=== PATIENT | male | born 1995 | race Caucasian/White ===

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

== ENCOUNTER 2017-03-19 20:20 | Emergency (ER) | payer BC ==
[2017-03-19] MEDS ORDERED: Ibuprofen TAB* 600 MG PO ONE (20:29)
[2017-03-19 20:31] VITALS: BP 102/72
--- NOTE | 2017-03-19 20:37 | UC ---
Hand/Wrist HPI - HPI Summary HPI Summary: Was playing on [employer] and landed funny on R hand, twisted fingers, and heard a snap. Not currently working or going to school. No prior injury or surgery there. - History Of Current Complaint Stated Complaint: HAND INJURY Time Seen by Provider: 03/19/17 20:29 Hx Obtained From: Patient ?: No Onset/Duration: Sudden Onset Severity Initially: Moderate Severity Currently: Moderate Character Of Pain: Dull, Aching Aggravating Factor(s): Movement Associated Signs And Symptoms: Positive: Swelling Related History: Dominant Hand Right - Allergies/Home Medications Allergies/Adverse Reactions: Allergies Allergy/AdvReac Type Severity Reaction Status Date / Time Sulfa Drugs Allergy Intermediate Rash Verified 12/30/16 14:01 PMH/Surg Hx/FS Hx/Imm Hx Previously Healthy: Yes Other History Of: Negative For: HIV, Hepatitis B, Hepatitis C, Anticoagulant Therapy - Surgical History Surgical History: Yes Surgery Procedure, Year, and Place: Tonsillectomy adenoidectomy at age 7, TOE SURGERY - Family History Known Family History: Positive: None Negative: Cardiac Disease, Hypertension, Diabetes, Blood Disorder - Social History Alcohol Use: None Substance Use Type: None Smoking Status (MU): Never Smoked Tobacco Have You Smoked in the Last Year: No - Immunization History Most Recent Influenza Vaccination: 05/11 Most Recent Tetanus Shot: UTD Vaccination Up to Date: Yes Review of Systems Constitutional: Negative Skin: Negative Eyes: Negative ENT: Negative Respiratory: Negative Cardiovascular: Negative Gastrointestinal: Negative Genitourinary: Negative Motor: Negative Neurovascular: Negative Musculoskeletal: Arthralgia, Other: - R hand Neurological: Negative Psychological: Negative All Other Systems Reviewed And Are Negative: Yes Physical Exam Triage Information Reviewed: Yes Appearance: Well-Appearing, No Pain Distress, Well-Nourished Vital Signs Reviewed: Yes Eye Exam: Normal, Other - PERRL Eyes: Positive: Conjunctiva Clear ENT Exam: Normal ENT: Positive: Normal ENT inspection, Hearing grossly normal, Pharynx normal, TMs normal Neck exam: Normal Neck: Positive: Supple, Nontender Respiratory Exam: Normal Respiratory: Positive: Chest non-tender, Lungs clear, Normal breath sounds, No respiratory distress, No accessory muscle use Cardiovascular Exam: Normal Cardiovascular: Positive: RRR, No Murmur Musculoskeletal Exam: Other - bony tenderness over R 3rd metacarpal Musculoskeletal: Positive: Strength Limited @ - R him manager, ROM Limited @ - R hand Neurological Exam: Normal Neurological: Positive: Alert Psychological Exam: Normal Skin Exam: Normal Procedures - Splinting Location: R hand Hand-Made Type: orthoglass Splint: R 3rd metacarpal Pre-Proc Neuro Vasc Exam: normal Post-Proc Neuro Vasc Exam: normal Diagnostics - Radiology No standard instances Xray Interpretation: Positive (See Comments) - R hand x-ray: R 3rd metacarpal noted to have oblique, incomplete, minimally displaced shaft fracture Hand/Wrist Course/Dx - Differential Dx/Diagnosis Provider Diagnoses: R 3rd metacarpal shaft fx closed, minimally displaced, oblique, incomplete Discharge - Discharge Plan Condition: Stable Disposition: HOME Patient Education Materials: Hand Fracture (ED) Referrals: Jeffery Stuart MD [Medical Doctor] - 3 Days Additional Instructions: Keep the splint on all the time without getting wet until you see the orthopedist
--- NOTE | 2017-03-19 21:01 | RAD ---
INDICATION: Right hand injury. TECHNIQUE: 4 views of the right hand were obtained. FINDINGS: There is an oblique fracture extending through the distal diaphysis and metaphysis of the third metacarpal. The distal fragment is displaced one cortical diameter lateral relative the proximal fragment. No other fractures are seen. Joint spaces appear maintained. IMPRESSION: OBLIQUE SLIGHTLY DISPLACED FRACTURE OF THE THIRD METACARPAL.
== END 2017-03-19 21:29 | disposition home or self-care (01) ==
LOC: UCEAST 20:20
DX: S62.392A Other fracture of third metacarpal bone, right hand, initial encounter for closed fracture (principal); X58.XXXA Exposure to other specified factors, initial encounter; Y93.44 Activity, trampolining; Y92.9 Unspecified place or not applicable; Z88.2 Allergy status to sulfonamides
CPT/HCPCS: 99211; A9270-GY; G0463

== ENCOUNTER 2017-03-26 09:32 | Day surgery (SDC) | payer BC ==
[~2017-03-26 09:32] MED LIST: Buffered Lidocaine 0.9% SYRIN* 5 ML/SYR SYRINGE INTRADERM ONE
[2017-03-26] MEDS ORDERED: fentaNYL* 50 MCG/ML 2 ML VIAL (100 MCG VIAL) ONE (09:38)
[2017-03-26] MEDS ORDERED: Midazolam* 1 MG/ML 2 ML VIAL (2 MG) ONE (09:38)
[2017-03-26] MEDS ORDERED: ceFAZolin 2 GM PREMIX (*) 50 ML IVPB ONE (09:58)
[2017-03-26] MEDS ORDERED: Propofol* 10 MG/ML 20 ML BTL IV PUSH ONE (10:36)
[2017-03-26] MEDS ORDERED: Dexamethasone IV* 4 MG/ML 1 ML (4 MG) ONE (10:36)
[2017-03-26] MEDS ORDERED: Lidocaine 2% PF * 5 ML VIAL ONE (10:36)
[2017-03-26] MEDS ORDERED: Ondansetron INJ* 2 MG/ML VIAL ONE (10:36)
[2017-03-26] MEDS ORDERED: HYDROmorphone* 1 MG/ML 1 ML SYR IV PRN (10:44)
[2017-03-26] MEDS ORDERED: Acetaminophen TAB* 325 MG PO PRN (10:44)
[2017-03-26] MEDS ORDERED: fentaNYL* 50 MCG/ML 2 ML VIAL (100 MCG VIAL) IV PRN (10:44)
[2017-03-26] MEDS ORDERED: DiMENhydriNATE IV* 50 MG/ML VIAL IV PUSH PRN (10:44)
[2017-03-26] MEDS ORDERED: Bupivacaine 0.25% SDV* 30 ML ONE (11:06)
[2017-03-26] MEDS ORDERED: Sodium Chloride * 10 ML ONE (11:26)
[2017-03-26] MEDS ORDERED: EPHEDrine (Pressors)* 50 MG/ML VIAL ONE (11:26)
[2017-03-26] MEDS ORDERED: Ketorolac INJ* 30 MG/ML 1 ML VIAL ONE (11:53)
[2017-03-26 13:01] VITALS: BP 120/78
--- NOTE | 2017-03-26 23:51 | OP ---
DATE OF OPERATION: 03/26/17 - [facility] DATE OF : [birth year] SURGEON: Jesus Hilton MD CLINICAL RESEARCH ADMINISTRATOR: ROSELINE Cooper. An video production assistant was needed for the entirety of the procedure to assist with position of the arm, retraction and instrumentation. ANESTHESIOLOGIST: Dr. Judy Guadalupe. ANESTHESIA: General. PRE-OP DIAGNOSIS: Right displaced third metacarpal intraarticular fracture. POST-OP DIAGNOSIS: Right displaced third metacarpal intraarticular fracture. OPERATIVE PROCEDURE: Open reduction internal fixation, right third metacarpal intraarticular fracture. INDICATIONS: Cory fractured the third metacarpal bone after an awkward fall in the trampoline. It was rotated and little shortened. I told him that I would get some good x-rays in the operating room and it looks like it was spiraling down into the metacarpal head and I would plan to proceed with open anatomic reduction and internal fixation. If it looked like it was not going into the joint, then I would probably try to see if I could close reduce and pin it. He understood the risks and benefits and the proposed procedure. He elected to proceed. ESTIMATED BLOOD LOSS: 2 mL. COMPLICATIONS: None. FINDINGS: On preoperative fluoroscopy, it looked like it spiraled down right into the volar aspect of the metacarpal head. It also was quite difficult to reduce closed. DESCRIPTION OF PROCEDURE: Cory was seen in the preoperative holding area. The correct side, site, and procedure were identified. We came back to the operating room, anesthesia was induced. The arm was prepped and draped in the usual fashion and the formal time-out was performed. I began by bringing in the mini C-arm and obtaining fluoroscopic imaging, looks like the fracture went obliquely down right to the volar aspect of the metacarpal head. Additionally, it was very difficult to close reduce and I did not really want to line up anatomically. Therefore, I decided to proceed with open reduction, internal fixation. I began by making a longitudinal incision centered over the fracture over the dorsum of the third metacarpal. Dissection was carried down longitudinally once reversing dorsal vein was cauterized. Full-thickness flaps off the peritenon were raised. There was a juncture in between the middle and ring extensor tendon. This was released and the tendons were retracted. The periosteum over the dorsal third metacarpal was incised longitudinally and full- thickness subperiosteal flaps were raised to expose the fracture site. I tried to preserve as much metacarpophalangeal joint capsule as possible. After the fracture was exposed, it was hinged proximally and radially at the fracture site. The fracture was not really mobile at all. I ended up having to put a [place] elevator into the fracture line and opened the fracture site backup. I then used the micro curette and a rongeur as well as irrigation and suction to debride the fracture hematoma and get the fracture edges nice and clean. The fracture remained hinged proximally. There was some plastic deformation there which was the cause of the difficulty in obtaining a closed reduction. I was able to use the point of reduction clamp to get the fracture anatomically reduced. The alignment was checked fluoroscopically. I then placed two 1.5 mm lag screws off of the Synthes variable angle handset from radial to ulnar traversing the fracture line. These had excellent purchase and provided excellent compression across the fracture site holding it in a reduced position. I then brought in a 1.5 mm plate off the set. It was a little T- type plate with two holes distally. Plate was positioned and held in place while I placed one screw proximally. I then positioned my plate rotationally and checked it on fluoroscopy and then placed one distal screw just proximal to the two final distal holes. This was a cortical screw. The plate was brought down to the bone very nicely. The alignment looked very nice on the fluoroscopy. I therefore placed two more screws proximally and two variable angle locking screws distally. There was excellent purchase on all the screws. The final fluoroscopic imaging was checked. Everything looked anatomic. We went ahead and irrigated out the wound copiously. The periosteum was closed over the plate with 5-0 Prolene suture. The juncture was repaired with four 5-0 Prolene [id number] sutures. The skin was closed with 4-0 nylon suture. The operative area was infiltrated with 0.25% plain Marcaine. The tourniquet was deflated and the hand pinked up immediately. The tourniquet had been inflated to 250 mmHg prior to making skin incision. The wound was dressed with Xeroform, 4x4's, sterile Webril and a volar splint was placed with the hand in the protected position. He was then woken up and taken to recovery room in stable condition. [id number]/[facility] #: [id number] XAVI
--- NOTE | 2017-03-27 15:26 | RAD ---
INDICATION: Right third Metacarpal fracture, trauma COMPARISONS: March 19, 2017 TECHNIQUE: Fluoroscopy was provided for a surgical procedure. Total fluoroscopy time is: 42 seconds FINDINGS: Spot images of the straight internal fixation of the third metacarpal IMPRESSION: FLUOROSCOPY WAS PROVIDED FOR A SURGICAL PROCEDURE CPT II Codes: 6045F
== END 2017-03-26 13:14 | disposition home or self-care (01) ==
LOC: OREAST 09:32
PROVIDERS: ATTEND Orthopaedic Surgery Hand Surgery
DX: S62.302A Unspecified fracture of third metacarpal bone, right hand, initial encounter for closed fracture (principal); W09.8XXA Fall on or from other playground equipment, initial encounter; Y93.44 Activity, trampolining; Y92.9 Unspecified place or not applicable; F41.8 Other specified anxiety disorders
CPT/HCPCS: 76000; C1713; C1776; J0690; J1100; J1885; J2250; J2405; J2704; J3010

== ENCOUNTER 2017-12-28 09:27 | Emergency (ER) | payer BC ==
[2017-12-28 09:44] VITALS: BP 113/78
--- NOTE | 2017-12-28 10:48 | RAD ---
Indication: LEFT ankle and foot pain and swelling following twisting fall 2 days ago and repeat fall one day ago. Lateral ankle and third through fifth metatarsal pain. Comparison: February 10, 2009 radiographs Technique: AP, lateral, and oblique views LEFT foot. AP, lateral, and oblique views LEFT ankle. Report: Congruent ankle mortise and normal articular alignment throughout the foot. Suggestion of a subtle nondisplaced avulsion fracture at the tuberosity of the base of the fifth metatarsal most conspicuous on the mortise view of the ankle. No additional fracture evident. Significant soft tissue swelling over the lateral malleolus. Talocrural joint effusion. IMPRESSION: 1. Given magnitude of soft tissue swelling over the lateral malleolus and evidence of talocrural joint effusion consider potential lateral supporting ligament injury at the ankle. 2. Potential nondisplaced avulsion fracture at the tuberosity of the base of the fifth metatarsal most conspicuous on the mortise view of the ankle.
--- NOTE | 2017-12-28 11:30 | UC ---
Lower Extremity/Ankle HPI - HPI Summary HPI Summary: Patient is an otherwise healthy 22-year-old male presenting to the with left ankle and foot injuries. He states 2 days ago he stepped down wrong, inverting his left ankle and experiencing pain and swelling to the left lateral side without ecchymosis. He states the pain was able to improve enough with an Felix bandage that he was able to ambulate. Yesterday while playing basketball he once again came down on the foot wrong and injured the left lateral side of the foot with a small amount of ecchymosis to the area. He states he once again Felix wrap the area and was attempting to ambulate but with pain. He states at this point he is unable to ambulate due to pain and weakness. He has never injured the ankle or foot in the past. Denies any pain at rest. Worse with ambulation and plantar flexion and better with rest. Denies any knee pain or lower extremity pain otherwise. He has not taken anything [id number] for relief. - History of Current Complaint Chief Complaint: UCLowerExtremity Stated Complaint: FOOT INJURY Time Seen by Provider: 12/28/17 09:57 Hx Obtained From: Patient Onset/Duration: Sudden Onset Severity Initially: Moderate Severity Currently: Moderate Pain Intensity: 0 Pain Scale Used: 0-10 Numeric Aggravating Factor(s): Standing, Ambulation Alleviating Factor(s): Rest Able to Bear Weight: No - Risk Factors Gout Risk Factors: Negative DVT Risk Factors: Negative Septic Arthritis Risk Factor: Negative - Allergies/Home Medications Allergies/Adverse Reactions: Allergies Allergy/AdvReac Type Severity Reaction Status Date / Time Sulfa (Sulfonamide Allergy Rash Verified 12/28/17 09:38 Antibiotics) Home Medications: Home Medications ALPRAZolam [Alprazolam Xr] 2 mg PO DAILY 12/28/17 [History Confirmed 12/28/17] Venlafaxine TAB (NF) [Effexor TAB (NF)] 225 mg PO DAILY 12/28/17 [History Confirmed 12/28/17] PMH/Surg Hx/FS Hx/Imm Hx Previously Healthy: Yes Other History Of: Negative For: HIV, Hepatitis B, Hepatitis C, Anticoagulant Therapy - Surgical History Surgical History: Yes Surgery Procedure, Year, and Place: Tonsillectomy adenoidectomy at age 7, TOE SURGERY; Right hand surgery. WISDOM TEETH- REMOVED 6 MONTHS AGO - Family History Known Family History: Positive: None Negative: Cardiac Disease, Hypertension, Diabetes, Blood Disorder - Social History Occupation: Employed Part-time Lives: With Family Alcohol Use: None Substance Use Type: None Smoking Status (MU): Never Smoked Tobacco Have You Smoked in the Last Year: No - Immunization History Most Recent Influenza Vaccination: 05/11 Most Recent Tetanus Shot: UTD Vaccination Up to Date: Yes Review of Systems Constitutional: Negative Skin: Negative Respiratory: Negative Cardiovascular: Negative Motor: Decreased ROM Musculoskeletal: Arthralgia, Decreased ROM Neurological: Negative Psychological: Negative Is Patient Immunocompromised?: No All Other Systems Reviewed And Are Negative: Yes Physical Exam Triage Information Reviewed: Yes Appearance: Well-Appearing, No Pain Distress, Well-Nourished Vital Signs: Initial Vital Signs Temp 98.7 F 12/28/17 09:40 Pulse 95 12/28/17 09:40 Resp 18 12/28/17 09:40 BP 113/78 12/28/17 09:40 Pulse Ox 98 12/28/17 09:40 Vital Signs Reviewed: Yes Neck exam: Normal Neck: Positive: Supple Respiratory Exam: Normal Respiratory: Positive: Chest non-tender, Lungs clear Cardiovascular Exam: Normal Cardiovascular: Positive: RRR Musculoskeletal: Positive: Strength Limited @ - plantar flexion and ambulation, ROM Limited @ - plantar flexion, Other: - swelling to the L lateral ankle without ecchymosis Neurological Exam: Normal Neurological: Positive: Alert Psychological: Positive: Normal Response To Family Skin Exam: Normal Lower Extremity Course/Dx - Course Course Of Treatment: Xray obtained of foot and ankle. IMPRESSION: 1. Given magnitude of soft tissue swelling over the lateral malleolus and evidence of. talocrural joint effusion consider potential lateral supporting ligament injury at the. ankle. 2. Potential nondisplaced avulsion fracture at the tuberosity of the base of the fifth. metatarsal most conspicuous on the mortise view of the ankle. - Differential Dx/Diagnosis Provider Diagnoses: ATFL injury; avulsion 5th metatarsal L foot Discharge - Sign-Out/Discharge Documenting (check all that apply): Discharge/Admit/Transfer - Discharge Plan Condition: Stable Disposition: HOME Patient Education Materials: Ankle Sprain (ED), Avulsion Fracture (ED) Referrals: Conrad Gonzalez MD [Primary Care Provider] - Jesus Albarran MD [Medical Doctor] - Additional Instructions: Please follow-up with orthopedics Ibuprofen 600 mg 3 times daily Ice to the area as much as possible Non-weight bearing Keep theboot on until follow up - Billing Disposition and Condition Condition: STABLE Disposition: HOME
== END 2017-12-28 11:19 | disposition home or self-care (01) ==
LOC: UCEAST 09:27
DX: S92.355A Nondisplaced fracture of fifth metatarsal bone, left foot, initial encounter for closed fracture (principal); X58.XXXA Exposure to other specified factors, initial encounter; Y92.9 Unspecified place or not applicable; Z88.2 Allergy status to sulfonamides
CPT/HCPCS: 99211; G0463

== ENCOUNTER 2018-03-02 14:43 | Emergency (ER) | payer BC ==
[2018-03-02 15:12] VITALS: BP 104/64
--- NOTE | 2018-03-02 15:43 | UC ---
Nausea/Vomiting/Diarrhea HPI - HPI Summary HPI Summary: 22 y/o male presents to the urgent care c/o diarrhea for 4 days. Pt reports he went hiking 5 days ago and forgot to bring water and [place] He also states that day he ate sushi for the first time. Pt states watery BM about 3 episodes/day w/ cramping abdominal pain relief w/ BM. He has been drinking plenty of water to be hydrated. He also states he fell from his scooter about 2 days ago and has some abrasions on his arms and legs that are healing. Pain w/ BM is 4/10. He started to take Imodium PO as per mother advise. Pt denies fever, SOB, chest pain, N/V, dizziness or LIANG. - History of Current Complaint Chief Complaint: UCGI Stated Complaint: DIARRHEA Time Seen by Provider: 03/02/18 15:16 Hx Obtained From: Patient Onset/Duration: Gradual Onset, Lasting Days - 4 days, Still Present, Worse Since - yesterday Severity Initially: Mild Severity Currently: Mild Pain Intensity: 0 Pain Scale Used: 0-10 Numeric Location: Diffuse - abdominal cramping pain relief w/ BM Character: Cramping Aggravating Factor(s): Food Alleviating Factor(s): Bowel Movement, OTC Analgesics - Started to take Imodium today Nausea/Vomiting Presence: None Diarrhea Presence: Yes Diarrhea Duration: 2-3 days Diarrhea Characteristics: Watery - Risk Factors Influenza Risk Factors: Negative Surgical Obstruction Risk Factor(s): Negative - Allergies/Home Medications Allergies/Adverse Reactions: Allergies Allergy/AdvReac Type Severity Reaction Status Date / Time Sulfa (Sulfonamide Allergy Rash Verified 03/02/18 15:12 Antibiotics) Home Medications: Home Medications Bipolar Med 03/02/18 [History] PMH/Surg Hx/FS Hx/Imm Hx Previously Healthy: Yes Psychological History: Bipolar Disorder Other History Of: Negative For: HIV, Hepatitis B, Hepatitis C, Anticoagulant Therapy - Surgical History Surgical History: Yes Surgery Procedure, Year, and Place: Tonsillectomy adenoidectomy at age 7, TOE SURGERY; Right hand surgery. WISDOM TEETH- REMOVED 6 MONTHS AGO - Family History Known Family History: Positive: None - Pt denies FMHX Negative: Cardiac Disease, Hypertension, Diabetes, Blood Disorder - Social History Occupation: Student Lives: With Family Alcohol Use: None Substance Use Type: Marijuana Substance Use Comment - Amount & Last Used: daily Smoking Status (MU): Never Smoked Tobacco Have You Smoked in the Last Year: No - Immunization History Most Recent Influenza Vaccination: 05/11 Most Recent Tetanus Shot: UTD Vaccination Up to Date: Yes Review of Systems Constitutional: Negative Skin: Other - multiple scratches in his B/L arms and B/L legs s/p fall Eyes: Negative ENT: Negative Respiratory: Negative Cardiovascular: Negative Gastrointestinal: Diarrhea Genitourinary: Negative Motor: Negative Neurovascular: Negative Musculoskeletal: Negative Neurological: Negative Psychological: Negative Is Patient Immunocompromised?: No All Other Systems Reviewed And Are Negative: Yes Physical Exam - Summary Physical Exam Summary: Vital Signs Reviewed: Yes General:Patient is a well developed and nourished male adolescent who is sitting comfortable in the examining table. Patient is not in any acute respiratory distress. Eyes: Positive: Conjunctiva Clear - PERRLA, EOMI, fundi grossly normal ENT: Positive: Normal ENT inspection, Hearing grossly normal, Pharynx normal, TMs normal Neck: Positive: Supple, Nontender, No Lymphadenopathy Respiratory: Positive: Chest non-tender, Lungs clear, Normal breath sounds, No respiratory distress Cardiovascular: Positive: RRR,S1 and S2 present, No Murmur, Pulses Normal, Brisk Capillary Refill Abdomen Description: Positive: Nontender, Abd: Flat with no distention. No surface trauma, scars, incisions. hyperactive bowel sounds present in all four quadrants. No tenderness, guarding, rigidity to palpation. No masses palpated, no pulsation in epigastric area. No organomegaly. Negative Hampton signs. No periumbilical tenderness. No rebound in the lower quadrants. NT over McBurneys point. No hernia noted. No CVAT bilaterally Musculoskeletal: Positive: Strength Intact, ROM Intact, No Edema,FROM in all major joints, no edema, no cyanosis or clubbing. Neuro: Alert and oriented x 3. No acute neurological deficits. Speech is normal. Psychological: WNL Skin: Dry and warm. Pt w/ B/L arms and legs w/ multiples abrasion of different sizes, mild tender to palpation, no swelling or drainage observed. FROM of all extremities, pulses WNL, sensation intact, capillary refill brisk. Triage Information Reviewed: Yes Vital Signs: Initial Vital Signs Temp 98.5 F 03/02/18 15:07 Pulse 67 03/02/18 15:07 Resp 16 03/02/18 15:07 BP 104/64 03/02/18 15:07 Pulse Ox 100 03/02/18 15:07 Naus/Vom/Diarrhea Course/Dx - Course Course Of Treatment: 22 y/o male presents to the urgent care c/o diarrhea for 4 days. Pt reports he went hiking 5 days ago and forgot to bring water and [place] He also states that day he ate sushi for the first time. Pt states watery BM about 3 episodes/day w/ cramping abdominal pain relief w/ BM. He has been drinking plenty of water to be hydrated. He also states he fell from his scooter about 2 days ago and has some abrasions on his arms and legs that are healing. Pain w/ BM is 4/10. He started to take Imodium PO as per mother advise. Pt denies fever, SOB, chest pain, N/V, dizziness or LIANG. Hx obtained. PE: WNL, exept for B/L arms and legs abrasion s/p fall. Pt gave stool for testing. Stool culture ordered, O&P, Lactoferrin. Pt will be notify of the results for further treatment. Pt advised to continue w/ Imodium PO to alleviate Diarrhea. Advised to increase fluid intake, eat soft meals, and rest. If Symptoms worsen to go immediately to the ER for further management. Otherwise f/u with PCP if not complete resolution of symptoms for Blood work and further management. Pt Rx Bacitracin oin and advised to apply over affected areas to avoid infection. D/C instructions explained. Pt understood and agreed with plan of care. Left the clinic ambulating and hemodynamically stable. - Differential Dx/Diagnosis Differential Diagnoses - Male: Appendicitis, Gastroenteritis (Viral), Gastroenteritis (Bacterial), Diarrhea, Colitis, Dehydration Provider Diagnoses: 1 Acute diarrhea. 2 skin abrasions s/p fall Condition At Discharge: Stable Discharge - Sign-Out/Discharge Documenting (check all that apply): Patient Departure - D/c home - Discharge Plan Condition: Stable Disposition: HOME Patient Education Materials: Acute Diarrhea (ED) Referrals: Conrad Gonzalez MD [Primary Care Provider] - 2 Days Additional Instructions: 1- Please increase fluid intake w/ Pedialyte OTC or Gatorade to hydrate yourself or drinking any fluids. Please eat soft meals white rice, crackers, banana etc. Continue taking Imodium PO since you started taking it today. 2-Apply Bacitracin oint on affected abrasions on your skin. 3 Stool samples was sent to the lab to r/o any abnormality. You will be notified of result. 4- If you develop fever or abdominal pain w/ recurrent episodes of diarrhea please go to the ER, otherwise f/u with your PCP if diarrhea not resolving in 2 -3 days - Billing Disposition and Condition Condition: STABLE Disposition: Home
== END 2018-03-02 16:18 | disposition home or self-care (01) ==
LOC: UCEAST 14:43
DX: R19.7 Diarrhea, unspecified (principal); S40.812A Abrasion of left upper arm, initial encounter; S40.811A Abrasion of right upper arm, initial encounter; S80.812A Abrasion, left lower leg, initial encounter; S80.811A Abrasion, right lower leg, initial encounter; W05.1XXA Fall from non-moving nonmotorized scooter, initial encounter; Y93.9 Activity, unspecified; Y92.9 Unspecified place or not applicable; F31.9 Bipolar disorder, unspecified; Z88.2 Allergy status to sulfonamides
CPT/HCPCS: 83630; 87045; 87046; 87328; 87329; 87899; 99211; G0463

== ENCOUNTER 2018-06-30 14:16 | Emergency (ER) | payer BC ==
--- NOTE | 2018-06-30 15:26 | ED ---
Psychiatric Complaint - HPI Summary HPI Summary: A 22 y/o male brought in by [facility] presents to [facility] with a chief complaint of anxiety since 06/29/18. He also c/o paranoia and "dark thoughts". He denies SI and HI and currently states that he is fine. The patient reports that he has not taken Xanax since 06/28/18 and has been taking Xanax daily for 6 months so he believes that he is in withdrawal. He also c/o dizziness, lightheadedness and nausea. He had a fear that he was not going to live much longer so he called a friend who is an EMT to get an ambulance. The patient claims that his psychiatrist has not put in the order yet for his Xanax even though the patient called 5 days ahead of time. The patient is unsure what to do now because he wants to be monitored if he is going through withdrawals. - History Of Current Complaint Chief Complaint: EDMentalHealth Time Seen by Provider: 06/30/18 14:34 Hx Obtained From: Patient, Family/[place] Onset/Duration: Sudden Onset, Lasting Days, Resolved Timing: Constant Severity Initially: Moderate Severity Currently: Moderate Character: Anxious Aggravating Factor(s): Nothing Alleviating Factor(s): Medication Associated Signs And Symptoms: Positive: Paranoid Behavior Has Suicidal: Denies: Thoughts Has Homicidal: Denies: Thoughts - Allergies/Home Medications Allergies/Adverse Reactions: Allergies Allergy/AdvReac Type Severity Reaction Status Date / Time Sulfa (Sulfonamide Allergy Rash Verified 06/30/18 18:47 Antibiotics) PMH/Surg Hx/FS Hx/Imm Hx Endocrine/Hematology History: Denies: Hx Anticoagulant Therapy, Hx Diabetes, Hx Thyroid Disease Cardiovascular History: Denies: Hx Congestive Heart Failure, Hx Deep Vein Thrombosis, Hx Hypertension , Hx Myocardial Infarction, Hx Pacemaker/ICD Respiratory History: Denies: Hx Asthma, Hx Chronic Obstructive Pulmonary Disease (COPD), Hx Lung Cancer GI History: Denies: Hx Gall Bladder Disease, Hx Gastrointestinal Bleed, Hx Ulcer, Hx Urosepsis History: Denies: Hx Kidney Stones, Hx Renal Disease Sensory History: Denies: Hx Contacts or Glasses, Hx Hearing Aid Opthamlomology History: Denies: Hx Contacts or Glasses Neurological History: Denies: Hx Dementia, Hx Migraine, Hx Seizures, Hx Transient Ischemic Attacks (TIA) Psychiatric History: Reports: Hx Anxiety - ON MEDICATION FOR, Hx Depression - ON MEDICATIN FOR Denies: Hx Schizophrenia, Hx Bipolar Disorder - Surgical History Surgery Procedure, Year, and Place: Tonsillectomy adenoidectomy at age 7, TOE SURGERY; Right hand surgery. WISDOM TEETH- REMOVED 6 MONTHS AGO Hx Anesthesia Reactions: No Infectious Disease History: No Infectious Disease History: Denies: Hx Clostridium Difficile, Hx Hepatitis, Hx Human Immunodeficiency Virus (HIV), Hx of Known/Suspected MRSA, Hx Tuberculosis, Traveled Outside the [place] in Last 30 Days - Family History Known Family History: Negative: Cardiac Disease, Hypertension, Diabetes, Blood Disorder - Social History Alcohol Use: None Substance Use Type: Reports: Marijuana Substance Use Comment - Amount & Last Used: daily Smoking Status (MU): Never Smoked Tobacco Have You Smoked in the Last Year: No Review of Systems Positive: Nausea Neurological: Other - positive: dizziness, lightheadedness Psychological: Other - Positive: paranoid Positive: Anxious, Other - negative: HI and SI All Other Systems Reviewed And Are Negative: Yes Physical Exam - Summary Physical Exam Summary: Appearance: The patient is well-nourished in no acute distress and in no acute pain. Skin: The skin is warm and dry and skin color reflects adequate perfusion. HEENT: The head is normocephalic and atraumatic. The pupils are equal and reactive. The conjunctivae are clear and without drainage. Nares are patent and without drainage. Mouth reveals moist mucous membranes and the throat is without erythema and exudate. The external ears are intact. The ear canals are patent and without drainage. The tympanic membranes are intact. Neck: The neck is supple with full range of motion and non-tender. There are no carotid bruits. There is no neck vein distension. Respiratory: Chest is non-tender. Lungs are clear to auscultation and breath sounds are symmetrical and equal. Cardiovascular: Heart is regular rate and rhythm. There is no murmur or rub auscultated. There is no peripheral edema and pulses are symmetrical and equal. Abdomen: The abdomen is soft and non-tender. There are normal bowel sounds heard in all four quadrants and there is no organomegaly palpated. Musculoskeletal: There is no back tenderness noted. Extremities are non-tender with full range of motion. There is good capillary refill. There is no peripheral edema or calf tenderness elicited. Neurological: Patient is alert and oriented to person, place and time. The patient has symmetrical motor strength in all four extremities. Cranial nerves are grossly intact. Deep tendon reflexes are symmetrical and equal in all four extremities. Psychiatric: The patient has an appropriate affect and does not exhibit any anxiety or depression. Triage Information Reviewed: Yes Vital Signs On Initial Exam: Initial Vitals Pulse Pulse Ox 79 97 06/30/18 14:33 06/30/18 14:33 Vital Signs Reviewed: Yes Diagnostics - Vital Signs Vital Signs Temp Pulse Resp BP Pulse Ox 06/30/18 14:35 83 104/75 99 06/30/18 14:34 98.3 F 82 18 104/75 98 06/30/18 14:33 79 97 - Laboratory Lab Statement: Any lab studies that have been ordered have been reviewed, and results considered in the medical decision making process. Course/Dx - Course Course Of Treatment: I recommended to Mr. Sebastian that we continue his Xanax as is for now. He needs to get an appointment with his physician or another physician of his choosing to either continue the Xanax or to taper it safely. I 'm going to give him a prescription for 10 days to give him time to make arrangements. I stop was checked and correlated with his story. He was given the number for [facility]. - Differential Dx/Clinical Impression Provider Diagnosis: Anxiety Discharge - Sign-Out/Discharge Documenting (check all that apply): Patient Departure - DC - Discharge Plan Condition: Stable Disposition: HOME Prescriptions: ALPRAZolam [Alprazolam ER] 3 mg PO DAILY #10 tab.er.[id number] MDD 1 Patient Education Materials: Anxiety (ED) Referrals: [facility] [Outside] (2-3 days) Conrad Gonzalez MD [Primary Care Provider] - (2-3 days) Additional Instructions: Follow up with your PCP in 2-3 days. Return to the ED if you experience any new or worsening symptoms. - Billing Disposition and Condition Condition: STABLE Disposition: Home - Attestation Statements Document Initiated by Scribe: Yes Documenting Scribe: Marcelo Huerta Provider For Whom Scribe is Documenting (Include Credential): Eduardo Badillo MD Scribe Attestation: IMarcelo, scribed for Eduardo Badillo MD on 06/30/18 at 2115. Scribe Documentation Reviewed: Yes Provider Attestation: The documentation as recorded by the scribe, Marcelo Huerta accurately reflects the service I personally performed and the decisions made by me, Eduardo Badillo MD Status of Scribe Document: Viewed
[2018-06-30 16:00] VITALS: BP 114/76
== END 2018-06-30 15:57 | disposition home or self-care (01) ==
LOC: ED 14:16
DX: F41.9 Anxiety disorder, unspecified (principal); F32.9 Major depressive disorder, single episode, unspecified; Z88.2 Allergy status to sulfonamides
CPT/HCPCS: 99282

== ENCOUNTER → 2018-06-30 18:44 | Emergency (ER) | payer BC ==
[2018-06-30 18:49] VITALS: BP 120/74
== END | disposition left against medical advice (07) ==
LOC: ED 18:44
DX: R11.10 Vomiting, unspecified (principal); Z53.21 Procedure and treatment not carried out due to patient leaving prior to being seen by health care provider

== ENCOUNTER 2019-04-07 16:17 | Emergency (ER) | payer BC ==
[2019-04-07] MEDS ORDERED: Rabies VIRUS VACCINE (RabAvert)* 2.5 UNITS VIAL IM ONE (16:18)
--- NOTE | 2019-04-07 16:35 | UC ---
Bite Injury/Animal HPI - HPI Summary HPI Summary: 23 yo male presents with bat bite to right thumb 2 weeks ago. He tells me that he found a bat in his friend's apartment 2 weeks ago and went to grab it with his right hand when the bat bit him in the right thumb. He has no symptoms currently and has not experienced any since bat bite. He is unsure the date of his last tetanus shot. - History of Current Complaint Stated Complaint: ANIMAL BITE (BAT) Time Seen by Provider: 04/07/19 16:35 Hx Obtained From: Patient Severity Currently: None Pain Intensity: 0 Pain Scale Used: 0-10 Numeric - Allergies/Home Medications Allergies/Adverse Reactions: Allergies Allergy/AdvReac Type Severity Reaction Status Date / Time Sulfa (Sulfonamide Allergy Rash Verified 04/07/19 16:39 Antibiotics) Home Medications: Home Medications QUEtiapine TAB* [Seroquel 100 MG *] 100 mg PO BEDTIME 04/07/19 [History Confirmed 04/07/19] PMH/Surg Hx/FS Hx/Imm Hx Psychological History: Anxiety, Depression Other History Of: Negative For: HIV, Hepatitis B, Hepatitis C, Anticoagulant Therapy - Surgical History Surgical History: Yes Surgery Procedure, Year, and Place: Tonsillectomy adenoidectomy at age 7, TOE SURGERY; Right hand surgery. WISDOM TEETH- REMOVED 6 MONTHS AGO - Family History Known Family History: Positive: None - Pt denies FMHX Negative: Cardiac Disease, Hypertension, Diabetes, Blood Disorder - Social History Lives: With Family Alcohol Use: None Substance Use Type: Marijuana Substance Use Comment - Amount & Last Used: daily Smoking Status (MU): Never Smoked Tobacco Have You Smoked in the Last Year: No - Immunization History Most Recent Influenza Vaccination: 05/11 Most Recent Tetanus Shot: UTD Vaccination Up to Date: Yes Review of Systems All Other Systems Reviewed And Are Negative: Yes Constitutional: Positive: Negative Skin: Positive: Other - bat bite right thumb Respiratory: Positive: Negative Cardiovascular: Positive: Negative Neurological: Positive: Negative Psychological: Positive: Negative Physical Exam - Summary Physical Exam Summary: GENERAL: NAD. WDWN. No pain distress. SKIN: RIGHT THUMB: No bite conte appreciated. CHEST: No accessory muscle use. Breathing comfortably and in no distress. CV: Pulses intact. Cap refill <2seconds NEURO: Alert. PSYCH: Age appropriate behavior. Triage Information Reviewed: Yes Vital Signs: Vital Signs: Temp Pulse Resp BP Pulse Ox 98.1 F 66 18 113/71 95 04/07/19 16:34 04/07/19 16:34 04/07/19 16:34 04/07/19 16:34 04/07/19 16:34 Vital Signs Reviewed: Yes Bite Injury Course/Dx - Course Course Of Treatment: RIG injected around bite site and rabies vaccine given according to health department guidelines. tdap updated today. - Differential Dx/Diagnosis Provider Diagnosis: Bat bite of finger, Rabies, need for prophylactic vaccination against Discharge ED - Sign-Out/Discharge Documenting (check all that apply): Patient Departure All imaging exams completed and their final reports reviewed: No Studies - Discharge Plan Condition: Stable Disposition: HOME Patient Education Materials: Rabies Immune Globulin (By injection), Rabies (ED) , Rabies Vaccine (ED) Referrals: No Primary Care Phys,NOPCP [Primary Care Provider] - Additional Instructions: Please follow up with the Health Department for further rabies vaccinations. - Billing Disposition and Condition Condition: STABLE Disposition: Home
[2019-04-07 16:39] VITALS: BP 113/71
[2019-04-07] MEDS ORDERED: Rabies Immune Globulin/PF 1ML* 1 ML/300 UNITS VIAL IM ONE (16:44)
[2019-04-07] MEDS ORDERED: Tetan/Diph/Pertus SYR(Tdap)* 0.5 ML SYR(BOOSTRIX) use SYR IM ONE (16:44)
== END 2019-04-07 17:35 | disposition home or self-care (01) ==
LOC: UCEAST 16:17
DX: Z29.14 Encounter for prophylactic rabies immune globulin (principal); Z23 Encounter for immunization; Z88.2 Allergy status to sulfonamides
CPT/HCPCS: 90375; 90471; 90472; 90675; 90715; 96372; 99202; G0463

== ENCOUNTER 2019-08-29 05:47 | Observation (INO) | payer BC ==
--- NOTE | 2019-08-29 06:01 | ED ---
Abdominal Pain/Male - HPI Summary HPI Summary: Patient is a 23-year-old male who presents emergency department for lower abdominal pain that started acutely this morning around 0 300. Patient notes pain is diffusely across his lower abdomen and sharp in nature. It is exacerbated with movement. Denies associated symptoms of fever, vomiting, diarrhea, constipation, dysuria, testicular pain or swelling. Patient notes that he worked up for the first time this week in a while and has been feeling achy. Past medical history of a side a. Symptoms are moderate in severity. - History of Current Complaint Chief Complaint: EDAbdPain Stated Complaint: ABD PAIN PER PT Time Seen by Provider: 08/29/19 05:59 Hx Obtained From: Patient Pain Intensity: 6 - Allergies/Home Medications Allergies/Adverse Reactions: Allergies Allergy/AdvReac Type Severity Reaction Status Date / Time Sulfa (Sulfonamide Allergy Rash Verified 08/29/19 05:51 Antibiotics) PMH/Surg Hx/FS Hx/Imm Hx Previously Healthy: Yes Endocrine/Hematology History: Denies: Hx Anticoagulant Therapy, Hx Diabetes, Hx Thyroid Disease Cardiovascular History: Denies: Hx Congestive Heart Failure, Hx Deep Vein Thrombosis, Hx Hypertension , Hx Myocardial Infarction, Hx Pacemaker/ICD Respiratory History: Denies: Hx Asthma, Hx Chronic Obstructive Pulmonary Disease (COPD), Hx Lung Cancer GI History: Denies: Hx Gall Bladder Disease, Hx Gastrointestinal Bleed, Hx Ulcer, Hx Urosepsis History: Denies: Hx Kidney Stones, Hx Renal Disease Sensory History: Denies: Hx Contacts or Glasses, Hx Hearing Aid Opthamlomology History: Denies: Hx Contacts or Glasses Neurological History: Denies: Hx Dementia, Hx Migraine, Hx Seizures, Hx Transient Ischemic Attacks (TIA) Psychiatric History: Reports: Hx Anxiety - ON MEDICATION FOR, Hx Depression - ON MEDICATIN FOR Denies: Hx Schizophrenia, Hx Bipolar Disorder - Surgical History Surgery Procedure, Year, and Place: Tonsillectomy adenoidectomy at age 7, TOE SURGERY; Right hand surgery. WISDOM TEETH- REMOVED 6 MONTHS AGO Hx Anesthesia Reactions: No Infectious Disease History: No Infectious Disease History: Denies: Hx Clostridium Difficile, Hx Hepatitis, Hx Human Immunodeficiency Virus (HIV), Hx of Known/Suspected MRSA, Hx Tuberculosis, Traveled Outside the [place] in Last 30 Days - Family History Known Family History: Positive: None - Pt denies FMHX, Non-Contributory Negative: Cardiac Disease, Hypertension, Diabetes, Blood Disorder - Social History Occupation: Unemployed Lives: With Family Alcohol Use: None Substance Use Type: Reports: Marijuana Substance Use Comment - Amount & Last Used: daily Smoking Status (MU): Never Smoked Tobacco Have You Smoked in the Last Year: No Review of Systems Constitutional: Negative Negative: Fever Eyes: Negative ENT: Negative Cardiovascular: Negative Respiratory: Negative Negative: Cough Positive: Abdominal Pain. Negative: Vomiting, Diarrhea, Nausea Genitourinary: Negative Positive: other - Negative testicle pain. Negative: dysuria, discharge Neurological: Negative All Other Systems Reviewed And Are Negative: Yes Physical Exam Triage Information Reviewed: Yes Vital Signs On Initial Exam: Initial Vitals Temp Pulse Resp BP Pulse Ox 98.2 F 106 18 145/93 99 08/29/19 05:49 08/29/19 05:49 08/29/19 05:49 08/29/19 05:49 08/29/19 05:49 Vital Signs Reviewed: Yes Appearance: Positive: Well-Appearing - Pt. sitting up in bed in NAD. Skin: Positive: Warm, Dry Head/Face: Positive: Normal Head/Face Inspection Eyes: Positive: Normal, EOMI Neck: Positive: Supple Respiratory/Lung Sounds: Positive: Clear to Auscultation, Breath Sounds Present Cardiovascular: Positive: Normal, RRR Abdomen Description: Positive: Other: - Abd. is soft with tenderness to RLQ and LLQ with mild guarding. Neurological: Positive: Normal, CN Intact II-III Psychiatric: Positive: Affect/Mood Appropriate Procedures - Sedation Patient Received Moderate/Deep Sedation with Procedure: No Diagnostics - Vital Signs Vital Signs Temp Pulse Resp BP Pulse Ox 08/29/19 05:49 98.2 F 106 18 145/93 99 - Laboratory Result Diagrams: 08/29/19 06:17 08/29/19 06:17 Lab Statement: Any lab studies that have been ordered have been reviewed, and results considered in the medical decision making process. Abdominal Pain Male Course/Dx - Course Course Of Treatment: Pt. with lower abd. pain. Localized to RLQ on exam. Afebrile. Mildly elevated WBC. Will obtain CT to evaluate for possible appendicitis. . CT per radiology: IMPRESSION: 1. IMAGING FEATURES COMPATIBLE WITH ACUTE APPENDICITIS: The tip of the hyperenhancing 1.1. cm appendix is directed inferiorly (see annotated on coronal image 35). No air or oral. contrast is seen within the appendix. There is subtle periappendiceal stranding. No. organized fluid collection is identified. Labs show mild elevation in WBC. Surgery consulted. Case discussed with Dr. Soto. Pt. examined by surgical PA and plan for appendectomy. - Diagnoses Differential Diagnosis/HQI/PQRI: Appendicitis, Constipation, Epididymitis, Renal Colic, Testicular Torsion, Ureteral Stone, Urinary Tract Infection Provider Diagnoses: Appendicitis Discharge ED - Sign-Out/Discharge Documenting (check all that apply): Patient Departure - Discharge Plan Condition: Stable Disposition: ADMITTED TO [facility] - Billing Disposition and Condition Condition: STABLE Disposition: Admitted to [facility]
[2019-08-29 06:29] LABS: ABS Eosinophils 0.3 10^3/ul (0-0.6); ABS Lymphocytes 1.2 10^3/ul (1.0-4.8); ABS Monocytes 1.1 10^3/ul (0-0.8); ABS Neutrophils 9.4 10^3/ul (1.5-7.7); Eosinophil % 2.4 %; Hematocrit 42 % (42-52); Hemoglobin 14.6 g/dL (14.0-18.0); Lymphocyte % 10.4 %; Mean Corpuscular HGB Conc 34 g/dL (31-36); Mean Corpuscular Hemoglobin 29 pg (27-31); Mean Corpuscular Volume 84 fL (80-94); Mean Platelet Volume 8.3 fL (7.4-10.4); Platelet Count 239 10^3/uL (150-450); Red Blood Count 5.03 10^6 /uL (4.18-5.48); Red Cell Distribution Width 13 % (10-15)
[2019-08-29] MEDS ORDERED: NS 0.9% 1000 ML** 1,000 ML IV ONE (06:35)
[2019-08-29 06:37] LABS: Urine Appearance Clear; Urine Bilirubin Negative (Negative); Urine Blood Negative (Negative); Urine Color Yellow; Urine Glucose Negative (Negative); Urine Ketones Negative (Negative); Urine Nitrite Negative (Negative); Urine Protein Negative (Negative); Urine Specific Gravity 1.026 (1.010-1.030); Urine Urobilinogen Negative (Negative)
[2019-08-29 06:42] LABS: Albumin 3.9 g/dL (3.2-5.2); Calcium 8.7 mg/dL (8.6-10.3); Potassium 3.9 mmol/L (3.5-5.0); Total Bilirubin 0.5 mg/dL (0.2-1.0)
[2019-08-29 06:48] LABS: Albumin/Globulin Ratio 1.5 (1-3); C Reactive Protein 9.78 mg/L (<8.01); EGFR African American 104.4 (>60); EGFR Non-African American 86.3 (>60); Globulin 2.6 g/dL (2-4); Total Protein 6.5 g/dL (6.4-8.9)
[2019-08-29] MEDS ORDERED: Iohexol 300* (CONTRAST) 10 ML SDV IV ONE (08:17)
--- NOTE | 2019-08-29 10:55 | HP ---
History of Present Illness - History of Present Illness Reason for Visit: Lower Abdominal Pain History of Present Illness: 23 yo male with sudden onset sharp stabbing pain in his lower abdomen at 3 AM this morning, which has localized to the RLQ The only thing that relieves the pain is lying down. denies nausea,Vomiting, or diarrhea. he is afebrile in the ED - Past Surgical History Past Surgical History: Other - wrist surgery, wisdom teeth extraction - Past Social History Smoke: No Occupation: none Alcohol: None Drugs: None Lives: With Family Review of Systems - Review of Systems Constitutional: Positive: Other - Afebrile at admission but is feeling feverish now Eyes: Negative: Pain, Vision Change, Conjunctivae Inflammation, Eyelid Inflammation, Redness, Other ENT: Negative: Ear Pain, Ear Discharge, Nose Pain, Nose Discharge, Nose Congestion, Mouth Pain, Mouth Swelling, Throat Pain, Throat Swelling, Other Respiratory: Negative: Cough, Dry, Shortness of Breath, Hemoptysis, SOB with Excertion, Pleuritic Pain, Sputum, Wheezing Cardiovascular: Negative: Chest Pain, Palpitations, Orthopnea, Paroxysmal Noc. Dyspnea, Edema, Light Headedness, Other Gastrointestinal: Positive: Abdominal Pain Genitourinary: Negative: Dysuria, Frequency, Incontinence, Hematuria, Retention , Other Musculoskeletal: Negative: Neck Pain, Shoulder Pain, Arm Pain, Back Pain, Hand Pain, Leg Pain, Foot Pain, Other Skin: Negative: Rash, Lesions, Tahir, Bruising, Other Neurological: Negative: Weakness, Numbness, Incoordination, Change in Speech, Confusion, Seizures, Other - Medications/Allergies Allergies/Adverse Reactions: Allergies Allergy/AdvReac Type Severity Reaction Status Date / Time Sulfa (Sulfonamide Allergy Rash Verified 08/29/19 05:51 Antibiotics) Exam - Exam Vital Signs: Vital Signs (72 hours) 08/29/19 08/29/19 08/29/19 05:49 05:55 06:00 Temperature 98.2 F Pulse Rate 106 95 89 Respiratory 18 Rate Blood Pressure 145/93 138/86 (mmHg) O2 Sat by Pulse 99 99 98 Oximetry 08/29/19 08/29/19 08/29/19 06:25 06:55 07:00 Temperature Pulse Rate 83 86 83 Respiratory Rate Blood Pressure 126/81 125/85 (mmHg) O2 Sat by Pulse 99 100 99 Oximetry 08/29/19 08/29/19 08/29/19 07:25 07:55 08:00 Temperature Pulse Rate 91 95 100 Respiratory Rate Blood Pressure 129/89 126/82 (mmHg) O2 Sat by Pulse 100 100 100 Oximetry 08/29/19 09:04 Temperature Pulse Rate 106 Respiratory Rate Blood Pressure (mmHg) O2 Sat by Pulse 99 Oximetry Laboratory Tests 08/29/19 06:17 WBC 12.0 H Patient Name: SERA YANG Medical Record#: [id number] Ordering Physician: Dc DUKES Acct.#: [id number] : 1995 Age: 23 Sex: M Location: EMERGENCY DEPARTMENT Exam Date: 08/29/19633 ADM Status: REG ER Order Information: CT ABD/PEL W Accession Number: [id number] CPT: 06610 INDICATION: Right lower quadrant pain COMPARISON: There are no relevant prior studies available for comparison. TECHNIQUE: A CT scan of the abdomen and pelvis was performed with intravenous and with oral contrast following intravenous injection of 109 ml of Omnipaque 300 nonionic contrast. Contiguous axial sections were obtained from the lung bases through the symphysis pubis. Images were reconstructed in the coronal and sagittal planes. FINDINGS: LUNG BASES: There is mild dependent bilateral lower lobe subsegmental atelectasis. No pleural effusion is present. LIVER: The liver is normal in size. No significant focal abnormality is seen. GALLBLADDER: No calcified gallstones are seen. BILE DUCTS: No intra or extrahepatic ductal distention is seen. SPLEEN: The spleen is normal in size without significant focal abnormality. PANCREAS: The pancreas is normal in size. No ductal distention or calcifications are seen. ADRENAL GLANDS: The adrenal glands are normal in size. KIDNEYS: The kidneys are normal in size. No renal calculi or hydronephrosis is seen. No significant focal renal abnormality is seen. AORTA: The aorta is normal in caliber without significant calcific plaque. LYMPH NODES: No significantly enlarged lymph nodes are seen. BOWEL: The stomach, small and large bowel appear nondistended. The tip of the hyperenhancing 1.1 cm appendix is directed inferiorly (see annotated on coronal image 35). No air or oral contrast is seen within the appendix. There is subtle periappendiceal stranding. No organized fluid collection is identified. PELVIC ORGANS: No bladder wall thickening is seen. The prostate is not enlarged. PERITONEUM: No free intraperitoneal air or fluid is seen. BONES: No significant focal osseous abnormality is seen. IMPRESSION: 1. IMAGING FEATURES COMPATIBLE WITH ACUTE APPENDICITIS: The tip of the hyperenhancing 1.1 cm appendix is directed inferiorly (see annotated on coronal image 35). No air or oral contrast is seen within the appendix. There is subtle periappendiceal stranding. No organized fluid collection is identified. General: Alert, Oriented x3, Cooperative, Mild distress HEENT: Atraumatic, EOMI, Mucous membr. moist/pink Lungs: Clear to auscultation, Normal air movement Cardiovascular: Regular rate, Normal S1, Normal S2 Abdomen: Soft, Other - + Referred pain to RLQ when palpating LLQ, + Tenderness over McBurney's point Extremities: No tenderness/swelling Skin: No rashes Neurological: Cranial nerves 3-12 NL Psych/Mental Status: Mental status NL, Mood NL Assessment/Plan - Assessment/Plan Assessment: 23 yo male with sharp stabbing RLQ pain and + Tenderness to palpation at McBurneys Point, WBC 12 consistent with Acute Appendicitis Plan: NPO IV ABX Laparoscopic Appendectomy by Dr Soto Risks and benefite of surgery were reviewed with patient and his father. All Questions were answered
[2019-08-29] MEDS ORDERED: ceFOXitin 2 GM IVPREMIX* 2 GM/50 ML BAG IVPB ONE (11:30)
[2019-08-29] MEDS ORDERED: Lactated Ringers 1000 ML Bag* 1,000 ML IV SCH (12:00)
[2019-08-29] MEDS ORDERED: Ondansetron INJ* 2 MG/ML VIAL IV PRN ×2 (12:02→14:53)
[2019-08-29] MEDS ORDERED: Morphine 4 MG/ML VIAL (1 ml) 4 MG/ML VIAL IV PRN (12:02)
[2019-08-29] MEDS ORDERED: Propofol* 10 MG/ML 20 ML BTL ONE (14:29)
[2019-08-29] MEDS ORDERED: Ketorolac INJ* 30 MG/ML 1 ML VIAL ONE (14:29)
[2019-08-29] MEDS ORDERED: fentaNYL* 50 MCG/ML 2 ML VIAL (100 MCG VIAL) ONE ×3 (14:29→17:11)
[2019-08-29] MEDS ORDERED: Lidocaine 2% PF * 5 ML VIAL ONE (14:29)
[2019-08-29] MEDS ORDERED: Ondansetron INJ* 2 MG/ML VIAL ONE (14:29)
[2019-08-29] MEDS ORDERED: Dexamethasone IV* 4 MG/ML 1 ML (4 MG) ONE (14:29)
[2019-08-29] MEDS ORDERED: Cisatracurium* 2 MG/ML MDV 5 ML ONE (14:30)
[2019-08-29] MEDS ORDERED: Midazolam* 1 MG/ML 5 ML VIAL (5 MG) ONE (14:30)
[2019-08-29] MEDS ORDERED: Bupivacaine 0.25% EPI 200,000* 30 ML SDV ONE (14:43)
[2019-08-29] MEDS ORDERED: ceFOXitin 2 GM IVPREMIX* 2 GM/50 ML BAG ONE (14:50)
[2019-08-29] MEDS ORDERED: fentaNYL* 50 MCG/ML 2 ML VIAL (100 MCG VIAL) IV PRN (14:53)
[2019-08-29] MEDS ORDERED: Naloxone* 0.4 MG/ML 1 ML VIAL IV PRN (14:53)
[2019-08-29] MEDS ORDERED: Phenylephrine 40 MCG/ML SYRINGE ONE (15:10)
[2019-08-29] MEDS ORDERED: HYDROcodone/ACETAMIN 5-325 MG* 1 TAB PO PRN (15:52)
[2019-08-29] MEDS ORDERED: Ibuprofen TAB* 200 MG PO PRN (15:52)
--- NOTE | 2019-08-29 16:00 | OP ---
Operative Report - Blank - Operative Report Date of Operation: 08/29/19 Note: PREOP DX: ACUTE APPENDICITIS POSTOP DX: SAME PROC: LAP APPENDECTOMY SURG:MECENAS ASSIST: NONE ANES: GET; TOAL EBL: MINIMAL IVF: LR SPEC: APPENDIX DRAIN: NONE COMPL:NONE FINDINGS: ACUTE APPENDICITIS WITHOUT RUPTURE OR GANGRENE
[2019-08-29 17:25] VITALS: BP 130/80
--- NOTE | 2019-08-29 23:37 | OP ---
DATE OF OPERATION: 08/29/19 - ROOM #340 DATE OF : [birth year] SURGEON: Yuniel Soto MD PIANO REGULATOR INSPECTOR: None. ANESTHESIOLOGIST: Dr. Alok Rowe. ANESTHESIA: General endotracheal. PRE-OP DIAGNOSIS: Acute appendicitis. POST-OP DIAGNOSIS: Acute appendicitis. OPERATIVE PROCEDURE: Laparoscopic appendectomy. ESTIMATED BLOOD LOSS: Minimal. IV FLUIDS: Crystalloids. SPECIMENS: Appendix. DRAINS: None. COMPLICATIONS: None. COUNT: Instrument, needle, and sponge count correct. DESCRIPTION OF PROCEDURE: The patient was brought to the operating room and placed on the table supine. Sequential compression devices were placed on both lower extremities. General anesthesia was administered. He was positioned and padded appropriately. He was prepped and draped in the usual sterile fashion and a time-out was then performed. Local anesthetic was infiltrated into the incision sites prior to making each incision. Entry to the abdomen was through a transumbilical vertical incision using an open technique. After accessing the peritoneal cavity, a 12 mm trocar was placed and carbon dioxide was insufflated to a pressure of 15 mmHg. Under direct visualization, a 5 mm trocar was placed in the suprapubic region and also in the left lower quadrant. Inspection revealed the appendix in the right lower quadrant. There was a segment of the mid to distal appendix which had fibrinous exudate. Findings were consistent with early acute appendicitis with no evidence of gangrene or perforation. The appendix had peritoneal adhesions to the lateral sidewall which were taken down using combination of blunt and sharp dissection with cautery on small vessels. A window was created in the mesoappendix and then the appendix was divided at the cecum with the Endo JT stapler with a casarez cartridge. The mesoappendix was divided with Endo JT stapler with a pringle cartridge. The appendix was placed in an endoscopic retrieval bag and retrieved through the umbilical site. Staple lines were inspected, noted to be intact and hemostasis was assured. The ports removed under direct visualization. Carbon dioxide was released. The 0 Vicryl was used to close the umbilicus in a [id number] fashion. The skin incisions were all closed with 4-0 Monocryl in a subcuticular fashion and DermaFlex applied. The patient tolerated the procedure well, was extubated uneventfully and he was transferred to the recovery room in stable condition. [id number]/[facility] #: [id number] [facility]
== END 2019-08-29 16:15 | disposition home or self-care (01) ==
LOC: ED 05:47 → SSU 11:59
PROVIDERS: ADMIT Surgery; ATTEND Surgery
DX: K35.80 Unspecified acute appendicitis (principal); Z88.2 Allergy status to sulfonamides; F41.9 Anxiety disorder, unspecified; F32.9 Major depressive disorder, single episode, unspecified; Z79.899 Other long term (current) drug therapy
CPT/HCPCS: 36415; 74177; 80053; 81003; 85025; 86140; 88304; 96365; 99285; C1776; G0378; J0694; J1100; J1885; J2250; J2405; J2704; J3010; Q9967